=== PATIENT | female | born 1975 | race African-American/Black ===

== ENCOUNTER 2019-02-21 10:23 | Emergency (ER) | payer BC ==
[2019-02-21 10:39] VITALS: BMI 25.4
--- NOTE | 2019-02-21 10:46 | PDOC ---
History of Present Illness <Amelia Knutson - Last Filed: 02/21/19 18:08> - History of Present Illness Initial Comments: 02/21/19 12:52 HPI: 43 y/o F w/ hx of fibroid uterus s/p myomectomy x2 presenting with 3 days of progressively worsening abdominal pain. Pain initially started in mid lower abdomen but began to radiate to left LLQ and LUQ. She says pain is 10/10 now. She attempted ibuprofen but it did not imrpove pain. Pain is worsened with solid PO intake and worsened by movement. She states her pain felt like "something ruptured." Also endorses nausea and 1 episode of NBNB emesis. Also reports headahce and chills. Denies fever, chest pain, change in BM. Denies dysuria, but reports increased frequency. Has never had similar symptoms in the past. She reports eating at a new restaurant on Thursday but denies anyone else having abd symptoms. PMHx: as noted above ROS: as noted SHx: Denies Etoh, IVDA, tobacco use Allergies: NKDA <Chetna Roberts - Last Filed: 02/21/19 20:15> - General Chief Complaint: Pain, Acute Stated Complaint: ABD PAIN Time Seen by Provider: 02/21/19 10:39 Past History <Amelia Knutson - Last Filed: 02/21/19 18:08> - Past Medical History COPD: No - Suicide/Smoking/Psychosocial Hx Smoking History: Never smoked Hx Alcohol Use: No Drug/Substance Use Hx: No <Chetna Roberts - Last Filed: 02/21/19 20:15> - Past Medical History Allergies/Adverse Reactions: Allergies Allergy/AdvReac Type Severity Reaction Status Date / Time No Known Allergies Allergy Verified 02/21/19 10:32 Home Medications: Ambulatory Orders Oxycodone HCl 10 mg PO QID PRN #10 tablet MDD 4 02/21/19 Review of Systems - Review of Systems Comments:: 02/21/19 13:06 GENERAL/CONSTITUTIONAL: +chills. No weakness. HEAD, EYES, EARS, NOSE AND THROAT: No change in vision. No ear pain or discharge. No sore throat. CARDIOVASCULAR: No chest pain or shortness of breath RESPIRATORY: No cough, wheezing, or hemoptysis. GASTROINTESTINAL: +nausea, vomiting, no diarrhea or constipation. GENITOURINARY: No dysuria MUSCULOSKELETAL: No joint or muscle swelling or pain. No neck or back pain. SKIN: No rash NEUROLOGIC: No headache, vertigo, loss of consciousness, or change in strength/ sensation. ENDOCRINE: No increased thirst. No abnormal weight change HEMATOLOGIC/LYMPHATIC: No anemia, easy bleeding, or history of blood clots. ALLERGIC/IMMUNOLOGIC: No hives or skin allergy. <ArmandoPeteara - Last Filed: 02/21/19 20:15> *Physical Exam - Vital Signs Last Vital Signs Temp Pulse Resp BP Pulse Ox 98.7 F 88 20 119/75 100 02/21/19 14:10 02/21/19 14:10 02/21/19 14:10 02/21/19 14:10 02/21/19 14:10 <Amelia Knutson - Last Filed: 02/21/19 18:08> - Vital Signs Last Vital Signs Temp Pulse Resp BP Pulse Ox 93 H 22 H 148/77 99 02/21/19 10:32 02/21/19 10:32 02/21/19 10:32 02/21/19 10:32 - Physical Exam Comments: 02/21/19 13:08 GENERAL: Awake, alert, and fully oriented, in moderate distress HEAD: No signs of trauma, normocephalic, atraumatic EYES: PERRLA, EOMI, sclera anicteric, conjunctiva clear ENT: Auricles normal inspection, hearing grossly normal, nares patent, oropharynx clear without exudates. Moist mucosa NECK: Normal ROM, supple, no lymphadenopathy, JVD, or masses LUNGS: No distress, speaks full sentences, clear to auscultation bilaterally HEART: Regular rate and rhythm, normal S1 and S2, no murmurs, rubs or gallops, peripheral pulses normal and equal bilaterally. ABDOMEN: Tender to palpation diffusely but worse in LLQ/LUQ, irregular mass palpated in lower abdomen with tenderness, NBS, dullness to percussion EXTREMITIES : Normal inspection, Normal range of motion, no edema. No clubbing or cyanosis. NEUROLOGICAL: Cranial nerves II through XII grossly intact. Normal speech, normal gait, no focal sensorimotor deficits SKIN: Warm, Dry, normal turgor, no rashes or lesions noted <Chetna Roberts - Last Filed: 02/21/19 20:15> ED Treatment Course - LABORATORY CBC & Chemistry Diagram: 02/21/19 11:00 02/21/19 11:00 - ADDITIONAL ORDERS Additional order review: Laboratory Results 02/21/19 02/21/19 02/21/19 12:00 11:41 11:28 Sodium Potassium Chloride Carbon Dioxide Anion Gap BUN Creatinine Est GFR (CKD-EPI)AfAm Est GFR (CKD-EPI)NonAf Random Glucose Lactic Acid 1.0 Calcium Total Bilirubin AST ALT Alkaline Phosphatase Total Protein Albumin Lipase Serum , Qual Negative Urine HCG, Qual Negative 02/21/19 11:00 Sodium 140 Potassium 3.7 Chloride 108 H Carbon Dioxide 26 Anion Gap 6 L BUN 10.5 Creatinine 0.8 Est GFR (CKD-EPI)AfAm 105.39 Est GFR (CKD-EPI)NonAf 90.93 Random Glucose 129 H Lactic Acid Calcium 8.7 Total Bilirubin 0.2 AST 23 ALT 16 Alkaline Phosphatase 41 L Total Protein 7.0 Albumin 3.1 L Lipase 167 Serum , Qual Urine HCG, Qual 02/21/19 11:00 RBC 3.65 MCV 73.2 L MCHC 31.8 L RDW 16.7 H MPV 8.8 Neutrophils % 75.4 Lymphocytes % 15.2 Monocytes % 8.8 Eosinophils % 0.2 Basophils % 0.4 - RADIOLOGY Radiology Studies Ordered: Category Date Time Status PELVIC / BLADDER US [US] Stat Ultrasound 02/21/19 12:23 Completed - Medications Given in the ED: ED Medications Discontinued Medications Generic Name Dose Route Start Last Admin Trade Name Nhung PRN Reason Stop Dose Admin Sodium Chloride 1,000 mls @ 1,000 mls/hr 02/21/19 11:28 02/21/19 11:36 Normal Saline - IV 02/21/19 12:27 1,000 mls/hr ASDIR STA Administration Ketorolac Tromethamine 15 mg 02/21/19 12:24 02/21/19 13:18 Toradol Injection - IVPUSH 02/21/19 12:25 15 mg ONCE ONE Administration Morphine Sulfate 4 mg 02/21/19 11:18 02/21/19 11:35 Morphine Injection - IVPUSH 02/21/19 11:19 4 mg ONCE ONE Administration Morphine Sulfate 4 mg 02/21/19 13:55 02/21/19 14:08 Morphine Injection - IVPUSH 02/21/19 13:56 4 mg ONCE ONE Administration <Amelia Knutson - Last Filed: 02/21/19 18:08> - LABORATORY CBC & Chemistry Diagram: 02/21/19 11:00 02/21/19 11:00 <Chetna Roberts - Last Filed: 02/21/19 20:15> Medical Decision Making - Medical Decision Making 02/21/19 13:18 43 y/o F w/ hx of fibroid uterus s/p myomectomy x2 presenting with 3 days of progressively worsening abdominal pain associated with nausea and emesis. Vitals wnl. Physical exam notable for irregular mass and signifcant tenderness -CBC, CMP, lipase, UA, Upreg, UCx -transvaginal US -will perform pelvic exam -IVF, morphine 02/21/19 13:19 Pain is significantly better after morphine but chemicals distiller to palpation Toradol administered 02/21/19 13:59 still with pain despite toradol; will administer 4mg morphine plevic US with fibroid uterus with no free fluid in the plevis 02/21/19 14:55 Discussed with patient US findings and labs notable for anemia and fibroids Would like to continue to CT abd/pel 02/21/19 20:14 CT notable for fibroid with minimal free fluid in the pelvis discussed with patient results recommended f/u with brass polisher patient pain signifciantly improved; is comfortbale with DC home with instructions <Chetna Roberts - Last Filed: 02/21/19 20:15> *DC/Admit/Observation/Transfer - Discharge Dispostion Decision to Admit order: No <Amelia Knutson - Last Filed: 02/21/19 18:08> - Discharge Dispostion Decision to Admit order: No <Chetna Roberts - Last Filed: 02/21/19 20:15> Diagnosis at time of Disposition: Fibroid uterus Qualifiers: Uterine leiomyoma location: unspecified location Qualified Code(s): D25.9 - Leiomyoma of uterus, unspecified Anemia Qualifiers: Anemia type: unspecified type Qualified Code(s): D64.9 - Anemia, unspecified - Discharge Dispostion Disposition: HOME Condition at time of disposition: Improved - Prescriptions Prescriptions: Oxycodone HCl 10 mg PO QID PRN #10 tablet MDD 4 PRN Reason: Severe Pain - Referrals Referrals: Arlin Greene MD [Staff Physician] - Marium Pathak MD [Staff Physician] - Jimmy Jaime MD [Staff Physician] - - Patient Instructions Printed Discharge Instructions: Anemia, DI for Uterine Fibroids Additional Instructions: Additional Instructions: Please return to the emergency department with any new or worsening symptoms or concerns including severe pain unrelieved by meds, emesis, seizures, syncope. Please follow up with your brass polisher as soon as possible. regarding your fibroid uterus and anemia, for further management Please take IBUPROFEN (aka MOTRIN, ADVIL, ALEVE) 400 mg and/or ACETAMINOPHEN ( aka Tylenol) 650-975 mg every 6 hours, as needed, for pain. Please do not take these medications if you have a bleeding disorder, stomach or GI ulcer problems or liver disease. Please take one tablet of OXYCODONE every 6 hours, as needed for SEVERE pain. Please do not take this medication unless you absolutely need it, it is very addictive. Please do not drive, operate heavy machinery or make important decisions while on this medication, it can cloud your judgement.
--- NOTE | 2019-02-21 10:46 | PDOC ---
Attending Attestation - Resident Resident Name: Chetna Roberts - ED Attending Attestation I have performed the following: I have examined & evaluated the patient, The case was reviewed & discussed with the resident, I agree w/resident's findings & plan - HPI HPI: 02/21/19 11:00 43 YOF with h/o heart murmur presenting with lower abdominal pain now radiating to epigastrium, n/v since yesterday increased urinary output +subjective chills. has tried IVF, not currently. LMP about 3 weeks ago, awaiting next period. no h/o heavy periods, but does have increased vaginal discharge, clear and yellow, no blood or odor 02/21/19 13:54 - Physicial Exam PE: 02/21/19 11:01 Agree with the resident's HPI and PE as documented in the electronic medical record. NAD, well appearing, EOMI, PERRL, nl conjunctiva, anicteric; neck supple. lungs clear, RRR, soft holosystolic murmur, abdomen soft +palp fibroid/firm uterus up to umbilicus, diffusely tender, no CVAT. Back nontender. PINEDA x4, no focal neuro deficits. No peripheral edema. normal color for ethnicity, WWP. 02/21/19 13:52 02/21/19 13:55 - Medical Decision Making 02/21/19 13:55 hpi as documented VS reviewed, wnl Vital Signs Temp Pulse Resp BP Pulse Ox 93 H 22 H 148/77 99 02/21/19 10:32 02/21/19 10:32 02/21/19 10:32 02/21/19 10:32 DDx abdominal pain: Renal colic, biliary colic, metabolic/electrolyte derangements. GERD, PUD, esophageal spasm, pancreatitis, hepatitis, constipation , colitis, gastroenteritis, cholecystitis, UTI, pyelonephritis, ileus, SBO, medication side effect, hernia, appendicitis, diverticulitis. fibroid uterus, ovarian cyst/torsion. See HPI for details. Prior notes reviewed, including admissions, discharges and consultations. laboratory results and imaging reviewed, basic labs and lytes wnl, LFTs/lipase_ wnl. Cr normal neg preg test ED course -interventions: analgesia pelvic sono +fibroid uterus. ovaries difficulty to visualize due to persistent diffuse pain, pt elected for CT a/p to r/o alternative abdominal etiology/mass CT a/p with large fibroid uterus, external compression on ureters causing hydro. Cr preserved, able to urinate needs INVESTMENT BANKER eval for her fibroid uterus causing her anemia and pain analgesia offered Will discharge patient with a short course of opiates. Went over the risks of the medication. Advised patient to not mix with other products containing acetaminophen, to not combine with alcohol, or other illicit drugs, to not drive or operate machinery, and to refrain from any activity that will require complete attention while taking this medication. Pt to be discharged in stable condition. Patient made aware of clinical impression, treatment recommendations and disposition plan, return precautions discussed (including but not limited to new or persistent/worsening symptoms, pain, fevers, or signs of infection, chest pain, respiratory distress, inability to tolerate oral intake, dehydration, syncope, or neurologic changes) . Follow up with PMD and/or ANIMAL RIDE ATTENDANT specialist as recommended, follow up information provided, take medications as instructed for duration of time. continue with supportive care, avoid triggers and precipitants. All questions answered to patient's satisfaction and expressed understanding and comfort with this. At the time of discharge, the patient is alert, clinically improved, tolerating po and verbalizes understanding of instructions, satisfied with the care received and felt comfortable with the plan. Patient does not suffer from an acute life-threatening medical condition at this time and is safe for outpatient follow-up. 02/21/19 18:15 02/21/19 18:16
[2019-02-21] MEDS ORDERED: morphine CARPU-JECT 4 MG/1 ML DISP.SYRIN IVPUSH ONE ×2 (11:18→13:55)
[2019-02-21] MEDS ORDERED: morphine SULFATE 4 MG/ML VIAL ONE ×2 (11:27→14:03)
[2019-02-21] MEDS ORDERED: SODIUM CHLORIDE 1,000 ML IV STA (11:28)
[2019-02-21 12:01] LABS: BASO % 0.4 % (0-2.0); EOS % 0.2 % (0-4.5); HEMATOCRIT 26.7 % (32.4-45.2); HEMOGLOBIN 8.5 GM/dL (10.7-15.3); LYMPH % 15.2 % (8-40); MCH 23.3 pg (25.7-33.7); MCHC 31.8 g/dl (32.0-36.0); MEAN CELL VOLUME 73.2 fl (80-96); MEAN PLT VOLUME 8.8 fl (7.5-11.1); MONO % 8.8 % (3.8-10.2); NEUT % 75.4 % (42.8-82.8); PLATELET COUNT 239 K/MM3 (134-434); RBC 3.65 M/mm3 (3.60-5.2); RDW 16.7 % (11.6-15.6); WHITE BLOOD COUNT 8.9 K/mm3 (4.0-10.0)
[2019-02-21] MEDS ORDERED: KETOROLAC TROMETHAMINE 15 MG/ML VIAL IVPUSH ONE (12:24)
[2019-02-21 12:42] LABS: ALBUMIN 3.1 g/dl (3.4-5.0); BILIRUBIN,TOTAL 0.2 mg/dL (0.2-1); BLOOD UREA NITROGEN 10.5 mg/dL (7-18); CALCIUM 8.7 mg/dL (8.5-10.1); CREATININE 0.8 mg/dL (0.55-1.3); POTASSIUM 3.7 mmol/L (3.5-5.1)
[2019-02-21] MEDS ORDERED: KETOROLAC TROMETHAMINE 15 MG/ML VIAL ONE (13:11)
[2019-02-21 14:11] VITALS: BP 119/75; PULSE 88; TEMP 98.7
== END 2019-02-21 18:45 | disposition home or self-care (01) ==
LOC: JER 10:23
PROC: 3E0337Z Introduction of Electrolytic and Water Balance Substance into Peripheral Vein, Percutaneous Approach (ICD-10-PCS; principal; 2019-02-21)
PROC: 3E033NZ Introduction of Analgesics, Hypnotics, Sedatives into Peripheral Vein, Percutaneous Approach (ICD-10-PCS; 2019-02-21)
PROC: 3E033NZ Introduction of Analgesics, Hypnotics, Sedatives into Peripheral Vein, Percutaneous Approach (ICD-10-PCS; 2019-02-21)
PROC: 3E0333Z Introduction of Anti-inflammatory into Peripheral Vein, Percutaneous Approach (ICD-10-PCS; 2019-02-21)
DX: D25.9 Leiomyoma of uterus, unspecified (principal)
CPT/HCPCS: 36415; 74177-TC; 76856-TC; 80053; 83605; 83690; 84703; 85025; 87086; 99283-25; J7030

== ENCOUNTER 2020-09-07 07:46 | Day surgery (SDC) | payer BC, OTHER ==
[2020-09-07] MEDS ORDERED: LIDOCAINE 1%/EPI 1:100000 (20 ML MULTI DOSE VIAL) ONE ×2 (08:01→09:34)
[2020-09-07] MEDS ORDERED: OXYMETAZOLINE 0.05% NASAL SOLUTION 15 ML BOTTLE NS ONE (08:01)
[2020-09-07 08:09] VITALS: BMI 25.5
[2020-09-07] MEDS ORDERED: SCOPOLAMINE HYDROBROMIDE 1 PATCH PATCH.TD72 ONE (09:00)
[2020-09-07] MEDS ORDERED: MIDAZOLAM HCL 2 MG/2 ML SINGLE DOSE VIAL ONE (09:05)
[2020-09-07] MEDS ORDERED: fentaNYL CITRATE 250 MCG/5 ML VIAL ONE (09:05)
[2020-09-07] MEDS ORDERED: PROPOFOL 20 ML ONE ×20 (09:05→12:44)
[2020-09-07] MEDS ORDERED: ROCURONIUM BROMIDE 50 MG/5 ML SYRINGE ONE (09:06)
[2020-09-07] MEDS ORDERED: SUCCINYLCHOLINE CHLORIDE 200 MG/10 ML SYRINGE ONE (09:07)
[2020-09-07] MEDS ORDERED: LIDOCAINE HCL/PF 2% SDV 5ML VIAL ONE (09:10)
[2020-09-07] MEDS ORDERED: LIDOCAINE HCL 2% JELLY (5 ML/TUBE) ONE (09:10)
[2020-09-07] MEDS ORDERED: ceFAZolin SODIUM 1 GM VIAL ONE ×2 (09:28→13:26)
[2020-09-07] MEDS ORDERED: DEXAMETHASONE SOD PHOSPHATE 4 MG/1 ML VIAL ONE (09:28)
[2020-09-07] MEDS ORDERED: ONDANSETRON 4 MG/2 ML VIAL ONE (09:28)
[2020-09-07] MEDS ORDERED: KETOROLAC TROMETHAMINE 30 MG/1 ML VIAL ONE (09:28)
[2020-09-07] MEDS ORDERED: LIDOCAINE 1%/EPI 1:100000 (50 ML MULTI DOSE VIAL) NR ONE (09:30)
[2020-09-07] MEDS ORDERED: ONDANSETRON 4 MG/2 ML VIAL IVPUSH PRN (13:22)
[2020-09-07] MEDS ORDERED: oxyCODONE HCL 5 MG TABLET PO PRN ×4 (13:22→15:02)
[2020-09-07] MEDS ORDERED: LACTATED RINGERS SOLUTION 1,000 ML IV SCH ×2 (13:30→15:15)
[2020-09-07] MEDS ORDERED: ACETAMINOPHEN INJECTION 100 ML IVPB ONE (14:01)
[2020-09-07] MEDS ORDERED: BACITRACIN 15 GM TUBE TOPICAL OINTMENT ONE (14:38)
[2020-09-07] MEDS ORDERED: ONDANSETRON 4 MG/2 ML VIAL IVPB PRN (15:02)
[2020-09-07 16:34] VITALS: TEMP 98
[2020-09-07 16:36] VITALS: BP 129/90; PULSE 84
== END 2020-09-07 17:15 | disposition home or self-care (01) ==
LOC: FASU 07:46
PROVIDERS: ATTEND Plastic Surgery
PROC: 09SM0ZZ Reposition Nasal Septum, Open Approach (ICD-10-PCS; 2020-09-07)
PROC: 09U Ear, Nose, Sinus, Supplement (ICD-10-PCS; principal; 2020-09-07 09:55)
DX: J34.2 Deviated nasal septum (principal); J34.89 Other specified disorders of nose and nasal sinuses
CPT/HCPCS: 84703; 94760; J0131

== ENCOUNTER 2020-10-11 11:33 | Emergency (ER) | payer OTHER ==
[2020-10-11] MEDS ORDERED: LACTATED RINGERS SOLUTION 1000 ML INFUS.BAG IV ONE (11:44)
[2020-10-11 11:47] VITALS: TEMP 98.4; BMI 25.8
[2020-10-11] MEDS ORDERED: ONDANSETRON 4 MG/2 ML VIAL IVPUSH ONE (12:09)
[2020-10-11] MEDS ORDERED: SODIUM CHLORIDE 0.9% 500 ML INFUS.BAG IV ONE (12:15)
[2020-10-11] MEDS ORDERED: ACETAMINOPHEN 500 MG TABLET (FP) PO ONE (12:30)
[2020-10-11] MEDS ORDERED: ONDANSETRON 4 MG/2 ML VIAL ONE (12:31)
[2020-10-11] MEDS ORDERED: ACETAMINOPHEN 500 MG TABLET (FP) ONE (12:31)
[2020-10-11 12:48] LABS: BASO % 0.6 % (0-2.0); EOS % 1.2 % (0-4.5); HEMATOCRIT 37.7 % (32.4-45.2); HEMOGLOBIN 12.7 GM/dL (10.7-15.3); LYMPH % 49.5 % (8-40); MCH 29.4 pg (25.7-33.7); MCHC 33.8 g/dl (32.0-36.0); MEAN CELL VOLUME 87.1 fl (80-96); MEAN PLT VOLUME 9.4 fl (7.5-11.1); MONO % 9.5 % (3.8-10.2); NEUT % 39.2 % (42.8-82.8); PLATELET COUNT 202 K/MM3 (134-434); RBC 4.33 M/mm3 (3.60-5.2); RDW 13.1 % (11.6-15.6); WHITE BLOOD COUNT 3.9 K/mm3 (4.0-10.0)
[2020-10-11 12:59] LABS: CHLORIDE 106 mmol/L (98-107); SODIUM 142 mmol/L (136-145)
[2020-10-11 13:00] LABS: BLOOD UREA NITROGEN 15.2 mg/dL (7-18)
[2020-10-11 13:02] LABS: ALBUMIN 3.4 g/dl (3.4-5.0); ANION GAP 7 MMOL/L (8-16); CALCIUM 9.1 mg/dL (8.5-10.1); CO2 29 mmol/L (21-32); GLUCOSE,RANDOM 95 mg/dL (74-106); MAGNESIUM 2.3 mg/dL (1.8-2.4)
[2020-10-11 13:06] LABS: CREATININE 0.9 mg/dL (0.55-1.3); SGOT/AST 17 U/L (15-37); SGPT/ALT 21 U/L (13-61)
[2020-10-11 13:07] LABS: BILIRUBIN,TOTAL 0.3 mg/dL (0.2-1); TOT PROT 7.2 g/dl (6.4-8.2)
[2020-10-11 13:08] LABS: ALK PHOS 84 U/L (45-117)
[2020-10-11 15:14] VITALS: BP 110/72; PULSE 68
== END 2020-10-11 15:14 | disposition home or self-care (01) ==
LOC: JER 11:33
PROC: 3E033NZ Introduction of Analgesics, Hypnotics, Sedatives into Peripheral Vein, Percutaneous Approach (ICD-10-PCS; principal; 2020-10-11)
DX: R07.9 Chest pain, unspecified (principal); R51.9 Headache, unspecified
CPT/HCPCS: 36415; 70450-TC; 71045-TC-FY; 80053; 82550; 82553; 83735; 84484; 84703; 85025; 93005; 93010; 99285-25

== ENCOUNTER 2021-12-16 09:20 | Emergency (ER) | payer OTHER, BC ==
[2021-12-16 09:30] VITALS: BP 146/80; PULSE 76; TEMP 97.7; BMI 25.8
== END 2021-12-16 10:00 | disposition home or self-care (01) ==
LOC: JER 09:20
DX: H57.89 Other specified disorders of eye and adnexa (principal)
CPT/HCPCS: 99283-25

== ENCOUNTER 2022-12-03 14:08 | Observation (INO) | payer BC, OTHER ==
[2022-12-03] MEDS ORDERED: ASPIRIN 81 MG CHEWABLE TABLETS PO ONE (14:12)
[2022-12-03] MEDS ORDERED: ONDANSETRON 4 MG/2 ML VIAL IVPUSH ONE (14:17)
[2022-12-03 14:25] VITALS: BMI 25.8
[2022-12-03] MEDS ORDERED: ASPIRIN 81 MG CHEWABLE TABLETS ONE (14:44)
[2022-12-03] MEDS ORDERED: ONDANSETRON 4 MG/2 ML VIAL ONE (14:45)
[2022-12-03 15:00] LABS: BASO % 0.4 % (0-2.0); EOS % 1.1 % (0-4.5); HEMATOCRIT 38.3 % (32.4-45.2); HEMOGLOBIN 12.8 GM/dL (10.7-15.3); LYMPH % 52.1 % (8-40); MCH 28.4 pg (25.7-33.7); MCHC 33.5 g/dl (32.0-36.0); MEAN CELL VOLUME 84.7 fl (80-96); MEAN PLT VOLUME 9.1 fl (7.5-11.1); NEUT % 37.4 % (42.8-82.8); PLATELET COUNT 216 10^3/uL (134-434); RBC 4.52 M/mm3 (3.60-5.2); RDW 12.8 % (11.6-15.6); WHITE BLOOD COUNT 4.7 K/mm3 (4.0-10.0)
[2022-12-03 15:23] LABS: POTASSIUM 3.8 mmol/L (3.5-5.1)
[2022-12-03 15:24] LABS: CALCIUM 9.6 mg/dL (8.5-10.1)
[2022-12-03 15:25] LABS: ALBUMIN 3.8 g/dl (3.4-5.0)
[2022-12-03 15:30] LABS: BILIRUBIN,TOTAL 0.4 mg/dL (0.2-1); TOT PROT 7.8 g/dl (6.4-8.2)
[2022-12-03] MEDS ORDERED: NITROGLYCERIN 2% OINTMENT - 1GM PACKET TD ONE ×2 (15:47→16:33)
[2022-12-03 16:57] VITALS: RESP 18
[2022-12-03] MEDS ORDERED: TRIMETHOBENZAMIDE HCL 200MG/2ML INJ IM PRN (19:32)
[2022-12-03] MEDS ORDERED: ACETAMINOPHEN 1000 MG/100 ML BAG IVPB PRN (19:34)
[2022-12-04 07:31] LABS: HEMATOCRIT 35.3 % (32.4-45.2); HEMOGLOBIN 12.1 GM/dL (10.7-15.3); MCH 28.7 pg (25.7-33.7); MCHC 34.3 g/dl (32.0-36.0); MEAN CELL VOLUME 83.9 fl (80-96); MEAN PLT VOLUME 9.5 fl (7.5-11.1); PLATELET COUNT 185 10^3/uL (134-434); RBC 4.21 M/mm3 (3.60-5.2); RDW 12.7 % (11.6-15.6); WHITE BLOOD COUNT 2.5 K/mm3 (4.0-10.0)
[2022-12-04 12:02] LABS: ANISOCYTOSIS 0; MACROCYTOSIS 0; OVALOCYTE 2+
[2022-12-04] MEDS: SUCRALFATE 1 GM/10 ML UNIT DOSE CUPS PO SCH ×2 (17:42→21:37)
[2022-12-04] MEDS: PANTOPRAZOLE 40 MG TABLET PO SCH (17:42)
[2022-12-05 07:18] LABS: HEMATOCRIT 37.5 % (32.4-45.2); MCH 29.1 pg (25.7-33.7); MCHC 34.5 g/dl (32.0-36.0); MEAN CELL VOLUME 84.3 fl (80-96); MEAN PLT VOLUME 9.4 fl (7.5-11.1); PLATELET COUNT 194 10^3/uL (134-434); RBC 4.45 M/mm3 (3.60-5.2); RDW 12.7 % (11.6-15.6); WHITE BLOOD COUNT 3.5 K/mm3 (4.0-10.0)
[2022-12-05 07:41] LABS: POTASSIUM 4.4 mmol/L (3.5-5.1)
[2022-12-05 07:56] LABS: CREATININE 0.9 mg/dL (0.55-1.3)
[2022-12-05 08:06] LABS: CHOLESTEROL 204 mg/dL (50-200)
[2022-12-05 08:07] LABS: LDL CHOLESTEROL (ONLY SJRH) 80 mg/dL (5-100)
[2022-12-05 08:09] LABS: HDL CHOLESTEROL 110 mg/dL (40-60)
[2022-12-05] MEDS ORDERED: ENOXAPARIN NA (PORCINE) 40 MG/0.4 ML DISP.SYRIN SQ SCH (10:00)
[2022-12-05] MEDS: SUCRALFATE 1 GM/10 ML UNIT DOSE CUPS PO SCH (10:29)
[2022-12-05] MEDS: PANTOPRAZOLE 40 MG TABLET PO SCH (10:29)
[2022-12-05 11:11] VITALS: BP 131/76; PULSE 60; TEMP 98.3
== END 2022-12-05 12:45 | disposition home or self-care (01) ==
LOC: JER 14:08 → UNDOADMOB 15:53 → INTOOBSV 15:53 → JERBED 15:53 → J4W 21:06
PROVIDERS: ADMIT Internal Medicine; ATTEND Internal Medicine
PROC: 3E033NZ Introduction of Analgesics, Hypnotics, Sedatives into Peripheral Vein, Percutaneous Approach (ICD-10-PCS; principal; 2022-12-03)
PROC: 3E023GC Introduction of Other Therapeutic Substance into Muscle, Percutaneous Approach (ICD-10-PCS; 2022-12-03)
PROC: 3E033GC Introduction of Other Therapeutic Substance into Peripheral Vein, Percutaneous Approach (ICD-10-PCS; 2022-12-03)
DX: Q25.6 Stenosis of pulmonary artery (principal); R00.0 Tachycardia, unspecified; R00.2 Palpitations; M62.838 Other muscle spasm; D25.9 Leiomyoma of uterus, unspecified
CPT/HCPCS: 36415; 71045-TC-FY; 74178-TC; 80048; 80053; 80061; 83036; 83735; 84443; 84484; 84703; 85025; 85027; 93005; 93010; 93306-TC; 99285-25; C9803-CS; G0378; Q9967; U0003; U0005